=== PATIENT | female | born 1950 | race Caucasian/White ===

== ENCOUNTER 2019-03-19 10:37 | Outpatient (CLI) | payer MEDICARE ==
[2019-03-19 11:11] LABS: Estimated GFR-MDRD - POC Greater than 90
--- NOTE | 2019-03-19 16:06 | MRI ---
MRI OF BRAIN WITH AND WITHOUT CONTRAST: 03/19/19 Multiplanar and multisequential images obtained and post IV contrast. Internal auditory canal protoco l was followed. INDICATIONS: Right ear hearing loss. FINDINGS: Ventricles have normal size and position. There are numerous scattered white matter hyperintensity se en in the subcortical and deep white matter of both cerebral hemispheres. No enhancement associated w ith the sulci. No evidence of restricted diffusion. No mass or edema. Images of the internal auditory canal show nor mal appearing 7th and 8th cranial nerves. No abnormal enhancement identified in either internal audit ory canal. The intracranial internal carotid arteries and cerebral arteries show flow voids. Dural venous sinuse s are patent. Mild mucosal thickening of the left maxillary sinus. IMPRESSION: 1. There are scattered white matter hyperintensities on FLAIR sequence. These are nonspecific bu t in a patient of this age, most commonly represent chronic microvascular ischemic change. No abnorma l enhancement associated with any of these lesions. 2. MRI of brain and internal auditory canals otherwise unremarkable. POS: [facility]
== END 2019-03-19 10:38 | disposition home or self-care (01) ==
LOC: SCSMRI 10:37
PROVIDERS: ATTEND Specialist
DX: H91.21 Sudden idiopathic hearing loss, right ear (principal); R90.82 White matter disease, unspecified
CPT/HCPCS: 70553; 82565

== ENCOUNTER 2020-06-29 15:07 | Outpatient (CLI) | payer MEDICARE ==
[2020-06-29 16:51] LABS: Hemoglobin 12.4 g/dL (12.0-15.5); Mean Corpuscular HGB CONC 31.5 g/dL (32.0-36.0); Mean Corpuscular Hemoglobin 28.4 pg (27.0-33.0); Mean Corpuscular Volume 90.2 fl (81.6-98.3); Mean Platelet Volume 9.3 fl (7.4-10.4); Platelet Count 298 10x3/uL (150-450); RBC Distribution Width 14.1 % (11.5-14.5); Red Blood Cell (RBC) Count 4.37 10x6/uL (3.90-5.03); White Blood Cell (WBC) Count 5.2 10x3/uL (3.5-10.5)
[2020-06-29 17:14] LABS: Anion Gap 12 mmol/L (10-20); BUN (Urea Nitrogen) 10 mg/dL (9.8-20.1); Calc. Creatinine Clearance 0 mL/min (70-130); Calcium 9.4 mg/dL (7.8-10.44); Carbon Dioxide 26 mmol/L (23-31); Chloride 107 mmol/L (98-107); Glucose 85 mg/dL (80-115); Potassium 4.2 mmol/L (3.5-5.1); Sodium 141 mmol/L (136-145)
[2020-06-29 17:31] LABS: Prothrombin Time 11.5 sec (9.5-12.1)
[2020-06-30 01:32] LABS: SARS-CoV-2 PCR by NAA Not Detected (NotDetected)
== END 2020-06-29 15:08 | disposition home or self-care (01) ==
LOC: LABBT 15:07
PROVIDERS: ATTEND Internal Medicine Cardiovascular Disease
DX: Z01.812 Encounter for preprocedural laboratory examination (principal); I48.4 Atypical atrial flutter; Z20.822 Contact with and (suspected) exposure to COVID-19
CPT/HCPCS: 80048; 85027; 85610; U0003; U0005; 87635

== ENCOUNTER 2020-07-02 07:09 | Day surgery (SDC) | payer MEDICARE ==
[2020-07-01 09:50] VITALS: BMI 33.3
[2020-07-02] MEDS ORDERED: PROPOFOL 20 ML ONE (09:45)
== END 2020-07-02 11:09 | disposition home or self-care (01) ==
LOC: CCL 07:09
PROVIDERS: ATTEND Internal Medicine Cardiovascular Disease
PROC: 5A2204Z Restoration of Cardiac Rhythm, Single (ICD-10-PCS; principal; 2020-07-02)
DX: I48.0 Paroxysmal atrial fibrillation (principal); I48.4 Atypical atrial flutter; I25.10 Atherosclerotic heart disease of native coronary artery without angina pectoris; E78.5 Hyperlipidemia, unspecified; K21.9 Gastro-esophageal reflux disease without esophagitis; Z79.01 Long term (current) use of anticoagulants; Z79.84 Long term (current) use of oral hypoglycemic drugs; Z79.899 Other long term (current) drug therapy; Z88.5 Allergy status to narcotic agent; Z91.040 Latex allergy status
CPT/HCPCS: 92960; 93005; 93010; J2704

== ENCOUNTER 2020-10-14 12:26 | Outpatient (CLI) | payer MEDICARE ==
[2020-10-14 13:41] LABS: PTT 27.1 sec (22.0-33.0); Prothrombin Time 11.1 sec (9.5-12.1)
[2020-10-14 13:42] LABS: Anion Gap 15 mmol/L (10-20); BUN (Urea Nitrogen) 7 mg/dL (9.8-20.1); Calc. Creatinine Clearance 0 mL/min (70-130); Calcium 9.9 mg/dL (7.8-10.44); Carbon Dioxide 23 mmol/L (23-31); Chloride 108 mmol/L (98-107); Glucose 106 mg/dL (80-115); Potassium 4.7 mmol/L (3.5-5.1); Sodium 141 mmol/L (136-145)
[2020-10-14 14:43] LABS: SARS-CoV-2 NAA Rapid Test Not Detected (NotDetected)
== END 2020-10-14 12:27 | disposition home or self-care (01) ==
LOC: LABBT 12:26
PROVIDERS: ATTEND Internal Medicine Cardiovascular Disease
DX: Z01.812 Encounter for preprocedural laboratory examination (principal); Z20.822 Contact with and (suspected) exposure to COVID-19
CPT/HCPCS: 80048; 85610; 85730; U0002

== ENCOUNTER 2020-10-15 05:36 | Day surgery (SDC) | payer MEDICARE ==
[2020-10-14 14:51] VITALS: BMI 31.9
[2020-10-15] MEDS ORDERED: PROPOFOL 20 ML ONE (06:55)
[2020-10-15 07:07] LABS: Hemoglobin 13.4 g/dL (12.0-16.0); Mean Corpuscular HGB CONC 32.8 g/dL (32.0-36.0); Mean Corpuscular Volume 91.5 fL (78.0-98.0); Mean Platelet Volume 7.1 fL (7.4-10.4); Platelet Count 260 thou/uL (130-400); RBC Distribution Width 12.6 % (11.5-14.5); Red Blood Cell (RBC) Count 4.48 mill/uL (4.20-5.40); White Blood Cell (WBC) Count 5.1 thou/uL (4.8-10.8)
[2020-10-15 07:26] LABS: Lymphocytes 41 % (21-51); MDiff Complete? YES; Metamyelocyte 1 % (0-0); Monocytes 18 % (0-10); Neutrophil 39 % (42-75); Platelet Morphology Comment Appears Adequate; RBC Morphology Normal
== END 2020-10-15 08:03 | disposition home or self-care (01) ==
LOC: CCL 05:36
PROVIDERS: ATTEND Internal Medicine Cardiovascular Disease
PROC: 5A2204Z Restoration of Cardiac Rhythm, Single (ICD-10-PCS; principal; 2020-10-15)
DX: I48.4 Atypical atrial flutter (principal); I48.0 Paroxysmal atrial fibrillation; I25.10 Atherosclerotic heart disease of native coronary artery without angina pectoris; E78.5 Hyperlipidemia, unspecified; K21.9 Gastro-esophageal reflux disease without esophagitis; Z79.01 Long term (current) use of anticoagulants; Z79.84 Long term (current) use of oral hypoglycemic drugs; Z79.899 Other long term (current) drug therapy; Z88.5 Allergy status to narcotic agent; Z91.040 Latex allergy status; Z95.5 Presence of coronary angioplasty implant and graft
CPT/HCPCS: 85025; 92960; 93005; 93010; J2704

== ENCOUNTER 2021-04-22 07:48 | Outpatient (CLI) | payer MEDICARE ==
[2021-04-22 08:35] LABS: Hemoglobin 12.1 g/dL (12.0-15.5); Mean Corpuscular HGB CONC 31.8 g/dL (32.0-36.0); Mean Corpuscular Volume 91.4 fl (81.6-98.3); Mean Platelet Volume 8.9 fl (7.4-10.4); Platelet Count 241 10x3/uL (150-450); RBC Distribution Width 14.6 % (11.5-14.5); Red Blood Cell (RBC) Count 4.17 10x6/uL (3.90-5.03); White Blood Cell (WBC) Count 4.3 10x3/uL (3.5-10.5)
[2021-04-22 08:48] LABS: Prothrombin Time 10.8 sec (9.5-12.1)
[2021-04-22 08:54] LABS: ALT (SGPT) 13 U/L (8-55); AST (SGOT) 15 U/L (5-34); Albumin 4.1 g/dL (3.4-4.8); Alkaline Phosphatase 85 U/L (40-110); Anion Gap 14 mmol/L (10-20); BUN (Urea Nitrogen) 17 mg/dL (9.8-20.1); Bilirubin, Total 0.3 mg/dL (0.2-1.2); Calc. Creatinine Clearance 0 mL/min (70-130); Calcium 8.9 mg/dL (7.8-10.44); Carbon Dioxide 24 mmol/L (23-31); Chloride 107 mmol/L (98-107); Globulin 2.8 g/dL (2.4-3.5); Glucose 124 mg/dL (80-115); Potassium 4.5 mmol/L (3.5-5.1); Protein, Total 6.9 g/dL (5.8-8.1); Sodium 140 mmol/L (136-145)
[2021-04-22 23:50] LABS: SARS-CoV-2 PCR by NAA Not Detected (NotDetected)
== END 2021-04-22 07:49 | disposition home or self-care (01) ==
LOC: LABBT 07:48
PROVIDERS: ATTEND Internal Medicine Cardiovascular Disease
DX: Z01.812 Encounter for preprocedural laboratory examination (principal); I48.0 Paroxysmal atrial fibrillation; Z91.81 History of falling; Z20.822 Contact with and (suspected) exposure to COVID-19
CPT/HCPCS: 80053; 85027; 85610; 86850; 86900; 86901; U0003; U0005

== ENCOUNTER 2021-06-14 10:13 | Outpatient (CLI) | payer MEDICARE ==
[2021-06-14 10:59] LABS: Hemoglobin 11.8 g/dL (12.0-15.5); Mean Corpuscular HGB CONC 31.1 g/dL (32.0-36.0); Mean Corpuscular Hemoglobin 28.6 pg (27.0-33.0); Mean Corpuscular Volume 92.2 fl (81.6-98.3); Mean Platelet Volume 8.6 fl (7.4-10.4); Platelet Count 250 10x3/uL (150-450); Red Blood Cell (RBC) Count 4.12 10x6/uL (3.90-5.03); White Blood Cell (WBC) Count 3.6 10x3/uL (3.5-10.5)
[2021-06-14 11:10] LABS: Prothrombin Time 10.9 sec (9.5-12.1)
[2021-06-14 11:26] LABS: Anion Gap 12 mmol/L (10-20); BUN (Urea Nitrogen) 13 mg/dL (9.8-20.1); Calc. Creatinine Clearance 0 mL/min (70-130); Calcium 9.4 mg/dL (7.8-10.44); Carbon Dioxide 28 mmol/L (23-31); Chloride 106 mmol/L (98-107); Glucose 97 mg/dL (80-115); Potassium 4.8 mmol/L (3.5-5.1); Sodium 141 mmol/L (136-145)
[2021-06-14 23:31] LABS: SARS-CoV-2 PCR by NAA Not Detected (NotDetected)
== END 2021-06-14 10:14 | disposition home or self-care (01) ==
LOC: LABBT 10:13
PROVIDERS: ATTEND Internal Medicine Cardiovascular Disease
DX: Z01.812 Encounter for preprocedural laboratory examination (principal); I48.0 Paroxysmal atrial fibrillation; Z20.822 Contact with and (suspected) exposure to COVID-19
CPT/HCPCS: 80048; 85027; 85610; U0003; U0005

== ENCOUNTER → 2021-06-17 | Day surgery (SDC) | payer MEDICARE ==
[2021-06-14 14:12] VITALS: BMI 30.5
[~2021-06-17] MED LIST: PROPOFOL 20 ML ONE
== END | disposition home or self-care (01) ==
LOC: SDC 09:28
PROVIDERS: ATTEND Internal Medicine Cardiovascular Disease
PROC: B246ZZ4 Ultrasonography of Right and Left Heart, Transesophageal (ICD-10-PCS; principal; 2021-06-17)
DX: I48.91 Unspecified atrial fibrillation (principal); I48.92 Unspecified atrial flutter; I51.7 Cardiomegaly; Z79.01 Long term (current) use of anticoagulants; Z79.84 Long term (current) use of oral hypoglycemic drugs; Z79.890 Hormone replacement therapy; Z79.899 Other long term (current) drug therapy; Z88.5 Allergy status to narcotic agent; Z91.040 Latex allergy status; Z95.818 Presence of other cardiac implants and grafts
CPT/HCPCS: 93312; J2704